=== PATIENT | female | born 1965 | race Caucasian/White ===

== ENCOUNTER 2016-10-05 18:21 | Emergency (ER) | payer OTHER, MEDICAID ==
[~2016-10-05] VITALS: Ht 157.5 cm; Wt 60.0 kg
[~2016-10-05 18:21] MED LIST: BACL20TA PO; CYCL-36 PO; DICL-86 PO; IBUP-238 PO; META800 PO; OXYC-103 PO; PRED20 PO; ROBA750T3 PO
[2016-10-05 18:23] VITALS: BP 194/79; PULSE 78; RESP 20; TEMP 98.2; O2SAT 99
[2016-10-05 18:46] VITALS: BP 157/77; PULSE 79
--- NOTE | 2016-10-05 19:48 | PD ---
HPI Chief Complaint: Pain: Acute or Chronic Time Seen by Provider: 19:46 Travel History International Travel<30 days: No Contact w/Intl Traveler<30days: No Traveled to known affect area: No History of Present Illness HPI 51-year-old white female presents to emergency department with a 2 day history of right rest pain. She states that she has had several episodes where she's had shooting sharp pain in her right breast into her chest. She does not recall any trauma. She has not had any dimpling or discharge from her nipple. She does state that at times her nipple appears to be inverted. She does admit to feeling dizzy, having subjective chills and general malaise here in the last few days. She denies any prior problems with her breasts. She did have a mammogram approximately 10 years ago which was negative per the patient. She does not see a primary care doctor or a airline hostess. She has not had a breast exam and nearly 5 years. She does not do her own breast exams. PFSH Past Medical History Narrative Medical Chronic neck and back pain., GERD Tetanus Vaccination: < 5 Years ?: Not Past Surgical History Surgical History: No Previous Surgery Social History Alcohol Use: No Tobacco Use: Yes Allergies-Medications (Allergen,Severity, Reaction): Coded Allergies: No Known Allergies (Verified , 01/14/10) Reported Meds & Prescriptions Reported Meds & Active Scripts Active Neurontin (Gabapentin) 300 Mg Cap 300 Mg PO TID Vistaril (Hydroxyzine Pamoate) 50 Mg Cap 50 Mg PO QID PRN Keflex (Cephalexin) 500 Mg Cap 500 Mg PO Q6H Deltasone (Prednisone) 20 Mg Tab 20 Mg PO BID Flexeril (Cyclobenzaprine HCl) 10 Mg Tab 10 Mg PO TID Voltaren (Diclofenac Sodium) 75 Mg Tabec 75 Mg PO BID Robaxin-750 (Methocarbamol) 750 Mg Tab 750 Mg PO Q6HPRN Motrin (Ibuprofen) 800 Mg Tab 800 Mg PO Q8 Skelaxin (Metaxalone) 800 Mg Tab 800 Mg PO TIDPRN FOR MUSCLE RELAXATION Reported Lioresal (Baclofen) 20 Mg Tab 20 Mg PO TID OxyCONTIN ER (Oxycodone HCl) 10 Mg Tabcr 30 Mg PO TID UNKNOWN DOSE Review of Systems Except as stated in HPI: all other systems reviewed are Neg Physical Exam Narrative GENERAL: This is a well-nourished, well-developed patient, in no apparent distress. Patient's examined with nurse Cameron present. SKIN: No rashes, ecchymoses or lesions. Warm and dry. HEAD: Atraumatic. Normocephalic. EYES: PERRL, EOMI, no discharge or injection. No scleral icterus. EARS: Clear NOSE: Nasal turbinates appear normal. THROAT: Mucosa pink and moist. Airway patent. NECK: Trachea midline. supple, moves head freely. LUNGS: Clear to auscultation. CV: Regular in rhythm. ABDOMEN: Soft nontender. EXT: No clubbing cyanosis or edema. Data Data Last Documented VS Vital Signs Date Time Temp Pulse Resp B/P Pulse Ox O2 Delivery O2 Flow Rate FiO2 10/05/16 18:46 79 157/77 10/05/16 18:23 98.2 20 99 MDM Medical Decision Making Medical Screen Exam Complete: Yes Emergency Medical Condition: Yes Medical Record Reviewed: Yes Differential Diagnosis MDM: High Differential diagnoses: Abscess, folliculitis, cellulitis, lymphangitis, abrasion, contact dermatitis, mass, malignancy, cyst Narrative Course Patient does have an irregularity of her right area left nipple. She states it is tender to touch of the nipple and up under the nipple. I explained to the patient she needs to contact her insurance to assist with getting her into a airline hostess for further evaluation and treatment. We will treat her for potential infection because of her symptoms of subjective chills and malaise. She also requests something for anxiety and pain. She is currently under pain management. I agreed to give her Neurontin, Vistaril and Keflex. This is right breast pain Diagnosis Primary Impression: Breast pain, right Patient Instructions: General Instructions Additional Instructions: Rest. Warm compress. Keflex, Neurontin and Vistaril. Contact your insurance to get a primary care doctor as well as a airline hostess. You need to follow-up with a airline hostess as soon as possible for further evaluation. Return to the ER for emergencies. Med/Other Pt SpecificInfo: Prescription(s) given Scripts Gabapentin (Neurontin)300 Mg Exc293 Mg PO TID #30 CAP Prov:Gurdeep Bejarano MD 10/05/16 Hydroxyzine Pamoate (Vistaril)50 Mg Cap50 Mg PO QID PRN (ANXIETY) #30 CAP Prov:Gurdeep Bejarano MD 10/05/16 Cephalexin (Keflex)500 Mg Dlu730 Mg PO Q6H #40 CAP Prov:Gurdeep Bejarano MD 10/05/16 Disposition: 01 DISCHARGE HOME Condition: Stable Karthik Ac October 05, 2016 19:48
[2016-10-05] MEDS ORDERED: VIST50CA PO (20:00)
[2016-10-05] MEDS ORDERED: NEUR300C PO (20:00)
[2016-10-05] MEDS ORDERED: CEPH-460 PO (20:00)
== END 2016-10-05 20:31 | disposition home or self-care (01) ==
LOC: NEPK 18:21
DX: N64.4 Mastodynia (principal); R42 Dizziness and giddiness; R53.81 Other malaise
CPT/HCPCS: 99283